=== PATIENT | female | born 2000 | race Caucasian/White ===

== ENCOUNTER 2020-07-24 15:52 | Emergency (ER) | payer BC ==
[~2020-07-24] VITALS: Ht 160 cm; Wt 54.5 kg
[2020-07-24 16:07] VITALS: BP 114/71
--- NOTE | 2020-07-24 18:19 | NUR ---
present for pelvic exam pt tolerated exam well, present were scribe, pa and self
[2020-07-24] MEDS ORDERED: CefTRIAXone 1000mg IM Kit (w/lidocaine diluent) IM STA (18:26)
[2020-07-24] MEDS ORDERED: azithromycin 250mg tablet PO ONE (18:30)
[2020-07-24] MEDS ORDERED: FLUC150T66 PO (18:38)
--- NOTE | 2020-07-24 18:54 | NUR ---
primary rn at lunch, covering her
== END 2020-07-24 20:00 | disposition home or self-care (01) ==
LOC: ER 15:53
DX: N89.8 Other specified noninflammatory disorders of vagina (principal); F17.200 Nicotine dependence, unspecified, uncomplicated; Z79.2 Long term (current) use of antibiotics
CPT/HCPCS: 36415; 87491; 87591; 96372; 99284; J0696; Q0112